=== PATIENT | male | born 1995 | race Caucasian/White ===

== ENCOUNTER 2017-04-11 17:37 | Emergency (ER) | payer OTHER ==
[2017-04-11 17:41] VITALS: BP 130/73; TEMP 98.2
--- NOTE | 2017-04-11 17:59 | EDPHY ---
H & P Stated Complaint: unprotected sex last night, noticed bruise on penis Time Seen by Provider: 04/11/17 17:50 HPI/ROS: CHIEF COMPLAINT: Bruising HISTORY OF PRESENT ILLNESS: The patient is a 21-year-old man who had unprotected sex last night and is here today complaining of some bruising and wants to get tested for STDs. The patient states that the sex was somewhat aggressive but not painful. He is currently not having any pain he does know some bruising and was concerned. No tenderness. No testicular pain. No abdominal pain. No pain with urination, no hematuria. No pain with ejaculation. REVIEW OF SYSTEMS: Constitutional: denies: chills, fever, recent illness, recent injury EENTM: denies: blurred vision, double vision, nose congestion Respiratory: denies: cough, shortness of breath Cardiac: denies: chest pain, irregular heart rate, lightheadedness, palpitations Gastrointestinal/Abdominal: denies: abdominal pain, diarrhea, nausea, vomiting, blood streaked stools see above Genitourinary: denies: dysuria, frequency, hematuria, pain Musculoskeletal: denies: joint pain, muscle pain Skin: denies: lesions, rash, jaundice, bruising Neurological: denies: headache, numbness, paresthesia, tingling, dizziness, weakness Hematologic/Lymphatic: denies: blood clots, easy bleeding, easy bruising Immunologic/allergic: denies: HIV/AIDS, transplant EXAM: GENERAL: Well-appearing, well-nourished and in no acute distress. HEAD: Atraumatic, normocephalic. EYES: Pupils equal round and reactive to light, extraocular movements intact, sclera anicteric, conjunctiva are normal. ENT: TMs normal, nares patent, oropharynx clear without exudates. Moist mucous membranes. NECK: Normal range of motion, supple without lymphadenopathy or JVD. LUNGS: Breath sounds clear to auscultation bilaterally and equal. No wheezes rales or rhonchi. HEART: Regular rate and rhythm without murmurs, rubs or gallops. ABDOMEN: Soft, nontender, normoactive bowel sounds. No guarding, no rebound. No masses appreciated. : Minor contusion to left aspect of penile shaft. No hematoma. No edema. No break in the skin. No testicular pain. Normal cremasteric. No discharge BACK: No CVA tenderness, no spinal tenderness, step-offs or deformities EXTREMITIES: Normal range of motion, no pitting or edema. No clubbing or cyanosis. NEUROLOGICAL: Cranial nerves II through XII grossly intact. Normal speech, normal gait. 5/5 strength, normal movement in all extremities, normal sensation PSYCH: Normal mood, normal affect. SKIN: Warm, dry, normal turgor, no visible rashes or lesions. Source: Patient Exam Limitations: No limitations - Personal History Current Tetanus/Diphtheria Vaccine: Yes Current Tetanus Diphtheria and Acellular Pertussis (TDAP): Yes Tetanus Vaccine Date: < 10 years - Medical/Surgical History Hx Asthma: No Hx Chronic Respiratory Disease: No Hx Diabetes: No Hx Cardiac Disease: No Hx Renal Disease: No Hx Cirrhosis: No Hx Alcoholism: No Hx HIV/AIDS: No Hx Splenectomy or Spleen Trauma: No Other PMH: PMHx: scoriasis. PSHx: denies - Family History Significant Family History: No pertinent family hx - Social History Smoking Status: Never smoked Alcohol Use: Sober Drug Use: None Constitutional: Initial Vital Signs Temperature (C) 36.8 C 04/11/17 17:39 Heart Rate 77 04/11/17 17:39 Respiratory Rate 18 04/11/17 17:39 Blood Pressure 130/73 H 04/11/17 17:39 O2 Sat (%) 97 04/11/17 17:39 O2 Delivery Mode Room Air Allergies/Adverse Reactions: Penicillins Allergy (Verified 04/11/17 17:38) Home Medications: Medication Instructions Recorded NO HOME MEDS 05/15/09 Medical Decision Making ED Course/Re-evaluation: We discussed the bruise. It is not concerning clinically. He does wish to be tested for STDs which we will do although he understands that is likely too early to have a positive test after exposure. I encouraged him to return if he develops any symptoms. He understands and agrees with this. Differential Diagnosis: Partial list of the Differential diagnosis considered include but were not limited to; contusion, STD and although unlikely based on the history and physical exam, I also considered testicular trauma, torsion, epididymitis, penile fracture. - Data Points Laboratory Results: 04/11/17 18:15 C.trachomatis RNA (TMA) Pending N.gonorrhoeae RNA (TMA) Pending Departure - Departure Disposition: Home, Routine, Self-Care Clinical Impression: Contusion of penis Condition: Fair Instructions: Contusion in Adults (ED) Referrals: NONE *PRIMARY CARE P,. [Primary Care Provider] - As per Instructions [facility] [[facility]] - As per Instructions
[2017-04-11 18:03] VITALS: PULSE 66; RESP 20; O2SAT 95
[2017-04-13 16:22] LABS: GC AMPLIFICATION GENPROBE NEGATIVE (NEGATIVE)
== END 2017-04-11 18:13 | disposition home or self-care (01) ==
DX: S30.21XA Contusion of penis, initial encounter (principal); X58.XXXA Exposure to other specified factors, initial encounter; Y93.89 Activity, other specified

== ENCOUNTER 2018-02-24 13:00 | Emergency (ER) | payer OTHER ==
[2018-02-24 13:10] VITALS: BP 133/74
[2018-02-24] MEDS ORDERED: DIAZEPAM 5 MG TAB PO ONE (13:42)
--- NOTE | 2018-02-24 13:46 | EDPHY ---
H & P Stated Complaint: woke up with stiff neck, R upper back, and R shoulder pain denies trauma Time Seen by Provider: 02/24/18 13:37 HPI/ROS: CHIEF COMPLAINT: Right thoracic back pain HISTORY OF PRESENT ILLNESS: The patient is a 22-year-old man who states that he developed pain to his right thoracic paraspinous muscles when he was lifting weights 2-3 weeks ago. He states that he was bench pressing and doing curls. He went to a chiropractor and had some manipulations and his symptoms improved however last night he states that he slept awkwardly and had significant pain when he woke today. His mom had to help him out of bed. No chest pain or shortness of breath. No abdominal pain. No urinary symptoms. No more recent trauma or injury. Severity: Moderate Modifying factors: None REVIEW OF SYSTEMS: Constitutional: denies: chills, fever, recent illness, recent injury EENTM: denies: blurred vision, double vision, nose congestion Respiratory: denies: cough, shortness of breath Cardiac: denies: chest pain, irregular heart rate, lightheadedness, palpitations Gastrointestinal/Abdominal: denies: abdominal pain, diarrhea, nausea, vomiting, blood streaked stools Genitourinary: denies: dysuria, frequency, hematuria, pain Musculoskeletal: See HPI Skin: denies: lesions, rash, jaundice, bruising Neurological: denies: headache, numbness, paresthesia, tingling, dizziness, weakness Hematologic/Lymphatic: denies: blood clots, easy bleeding, easy bruising Immunologic/allergic: denies: HIV/AIDS, transplant 10 systems reviewed and negative except as noted EXAM: GENERAL: Well-appearing, well-nourished and in no acute distress. HEAD: Atraumatic, normocephalic. EYES: Pupils equal round and reactive to light, extraocular movements intact, sclera anicteric, conjunctiva are normal. ENT: TMs normal, nares patent, oropharynx clear without exudates. Moist mucous membranes. NECK: Normal range of motion, supple without lymphadenopathy or JVD. LUNGS: Breath sounds clear to auscultation bilaterally and equal. No wheezes rales or rhonchi. HEART: Regular rate and rhythm without murmurs, rubs or gallops. ABDOMEN: Soft, nontender, normoactive bowel sounds. No guarding, no rebound. No masses appreciated. BACK: Patient has right-sided thoracic back pain paraspinous and below the scapula. EXTREMITIES: Normal range of motion, no pitting or edema. No clubbing or cyanosis. NEUROLOGICAL: Cranial nerves II through XII grossly intact. Normal speech, normal gait. 5/5 strength, normal movement in all extremities, normal sensation , normal reflexes PSYCH: Normal mood, normal affect. SKIN: Warm, dry, normal turgor, no visible rashes or lesions. Source: Patient Exam Limitations: No limitations - Personal History Tetanus Vaccine Date: < 10 years - Medical/Surgical History Hx Asthma: No Hx Chronic Respiratory Disease: No Hx Diabetes: No Hx Cardiac Disease: No Hx Renal Disease: No Hx Cirrhosis: No Hx Alcoholism: No Hx HIV/AIDS: No Hx Splenectomy or Spleen Trauma: No Other PMH: denies - Family History Significant Family History: No pertinent family hx - Social History Smoking Status: Never smoked Alcohol Use: Sober Drug Use: None Constitutional: Initial Vital Signs Temperature (C) 36.7 C 02/24/18 13:06 Heart Rate 64 02/24/18 13:06 Respiratory Rate 16 02/24/18 13:06 Blood Pressure 133/74 H 02/24/18 13:06 O2 Sat (%) 98 02/24/18 13:06 O2 Delivery Mode Room Air Allergies/Adverse Reactions: Penicillins Allergy (Verified 04/11/17 17:38) Home Medications: Medication Instructions Recorded NO HOME MEDS 05/15/09 Diazepam [Valium 5 MG (*)] 5 mg PO TID PRN #15 tab 02/24/18 Medical Decision Making ED Course/Re-evaluation: We had a long discussion about the utility of x-rays. I did offer to perform x- rays. The patient does not feel that this is likely a lung or cardiac problem. He does not have any weakness numbness or paresthesias which would indicate is spinous process injury. No fevers. No new trauma. No rib tenderness. In the end we agreed to try muscle relaxants and have him follow up with his chiropractor and I will also refer her to physical therapy. Patient understands and agrees with this plan. He declines further workup or testing. We discussed indications for returning. Differential Diagnosis: Partial list of the Differential diagnosis considered include but were not limited to; muscle strain, rib contusion and although unlikely based on the history and physical exam, I also considered pneumothorax, PE, acute coronary disease, spinal abnormality. I discussed these differential diagnoses and the plan with the patient as well as the usual and expected course. The patient understands that the diagnosis is provisional and that in medicine we are not always correct and that further workup is often warranted. Usual and customary warnings were given. All of the patient's questions were answered. The patient was instructed to return to the emergency department should the symptoms at all worsen or return, otherwise to followup with the physician as we discussed. - Data Points Medications Given: Discontinued Medications Diazepam (Valium) 5 mg PO EDNOW ONE Stop: 02/24/18 13:43 Last Admin: 02/24/18 13:52 Dose: 5 mg Departure - Departure Disposition: Home, Routine, Self-Care Clinical Impression: Muscle strain right paraspinous Condition: Fair Instructions: Muscle Strain (ED) Additional Instructions: Follow-up with physical therapy for treatment. Referrals: NONE *PRIMARY CARE P,. [Primary Care Provider] - As per Instructions Prescriptions: Diazepam [Valium 5 MG (*)] 5 mg PO TID PRN #15 tab PRN Reason: Spasms
== END 2018-02-24 14:00 | disposition home or self-care (01) ==
DX: S29.011A Strain of muscle and tendon of front wall of thorax, initial encounter (principal); X50.0XXA Overexertion from strenuous movement or load, initial encounter; Y93.B3 Activity, free weights

== ENCOUNTER 2018-02-26 19:09 | Emergency (ER) | payer OTHER ==
[2018-02-26 19:25] VITALS: BP 120/74
--- NOTE | 2018-02-26 19:46 | EDPHY ---
H & P Time Seen by Provider: 02/26/18 19:35 HPI/ROS: CHIEF COMPLAINT: Genital lesions HISTORY OF PRESENT ILLNESS: Patient is a 22-year-old male who admits to the frequent a productive intercourse here with concern for 1 day of nonpainful erythematous lesions to his penis. He has no history of STDs. There was no trauma to the penis. Denies any fever or penile discharge. He has no dysuria. ROS As detailed in HPI Smoking Status: Current every day smoker Physical Exam: General: Alert and oriented. Nontoxic appearing. No acute distress HEENT: Pupils PERRLA. No oral lesions. Cardiopulmonary: Regular rate and rhythm. No lower extremity edema Skin: [place] warm and dry. 5 nonblanching nonraised non petechial nonvesicular 1 -2 mm flesh-colored lesions to the shaft of the penis. No penile discharge Muscle skeletal: Moving all 4 extremities. Equal strength in upper extremities and lower extremities. Ambulatory. Constitutional: Initial Vital Signs Temperature (C) 36.2 C 02/26/18 19:20 Heart Rate 75 02/26/18 19:20 Respiratory Rate 18 02/26/18 19:20 Blood Pressure 120/74 02/26/18 19:20 O2 Sat (%) 99 02/26/18 19:20 O2 Delivery Mode Room Air Allergies/Adverse Reactions: Penicillins Allergy (Verified 04/11/17 17:38) Home Medications: Medication Instructions Recorded Diazepam [Valium 5 MG (*)] 5 mg PO TID PRN #15 tab 02/24/18 Medical Decision Making ED Course/Re-evaluation: I considered syphilis, HIV, herpes, mollescum, folliculitis. Patient was tested for syphilis and HIV and gonorrhea and chlamydia was sent. - Data Points Laboratory Results: 02/26/18 02/26/18 02/26/18 20:04 20:04 19:55 RPR Resp to Therapy Pending HIV 1&2 Antibody NEGATIVE (NEGATIVE) N.gonorrhoeae RNA (TMA) Cancelled Departure - Departure Disposition: Home, Routine, Self-Care Clinical Impression: Rash of genital area Condition: Good Instructions: Sexually Transmitted Diseases (ED) Additional Instructions: We will call with any positive results under testing. Referrals: NONE *PRIMARY CARE P,. [Primary Care Provider] - As per Instructions [facility],. [Clinic] - As per Instructions
[2018-02-26 22:44] LABS: HIV TYPE 1 AND 2 NEGATIVE (NEGATIVE)
== END 2018-02-26 20:11 | disposition home or self-care (01) ==
DX: N48.22 Cellulitis of corpus cavernosum and penis (principal); F17.200 Nicotine dependence, unspecified, uncomplicated

== ENCOUNTER 2018-03-01 18:26 | Emergency (ER) | payer OTHER ==
[2018-03-01 18:32] VITALS: BP 134/73
--- NOTE | 2018-03-01 19:20 | EDPHY ---
H & P Time Seen by Provider: 03/01/18 18:55 HPI/ROS: CHIEF COMPLAINT: Right thoracic back pain HISTORY OF PRESENT ILLNESS: Male complaining right thoracic paraspinous pain which occurred when he is lifting weights few days ago. He was seen the ER given prescription for Valium which states made him feel"100% better". However he completed this prescription and due to school commitments he is unable to see his primary care provider. He is in the ER requesting further medication, notes that his pain has returned. He denies acute symptomatology. She denies: Chest pain, dyspnea, abdominal pain, nausea, vomiting, headache. PRIMARY CARE PROVIDER: REVIEW OF SYSTEMS: 10 systems reviewed and negative with the exception of the elements mentioned in the history of present illness PAST MEDICAL & SURGICAL HISTORY: No pertinent medical or surgical history SOCIAL HISTORY: Student PHYSICAL EXAM (Prior to examination, patient consented to physical exam, hands were washed and my usual and customary physical exam procedures followed) 1) GENERAL: Well-developed, well-nourished, alert and oriented. Appears to be in no acute distress. 2) HEAD: Normocephalic, atraumatic 3) HEENT: Pupils equal, round, reactive to light bilaterally. Sclera anicteric. 4) NECK: Full range of motion, no meningeal signs. 5) LUNGS: Clear auscultation bilaterally, no wheezes, no rhonchi, no retractions. 6) HEART: Regular rate and rhythm, no murmur, no heave, no gallop. 7) ABDOMEN: No guarding, no rebound, no focal tenderness, negative McBurney's, negative Renae's, negative Rovsing's, negative peritoneal sign, 8) MUSCULOSKELETAL: Moving all extremities, no focal areas of tenderness, no obvious trauma. No peripheral edema or discoloration. 9) BACK: Tender to palpation right paraspinous thoracic region. No crepitus. No lesions. No vesicles. No CVA tenderness, no midline vertebral tenderness, no fluctuance, no step-off, no obvious trauma, no visual or palpable abnormality. 10) SKIN: No rash, no petechiae. 11) Psychiatric: Patient is oriented X 3, there is no agitation. DIFFERENTIAL DIAGNOSIS: In no particular order including but not limited to acute muscle strain, pneumothorax, fracture Smoking Status: Current every day smoker Constitutional: Initial Vital Signs Temperature (C) 36.8 C 03/01/18 18:26 Heart Rate 93 03/01/18 18:26 Respiratory Rate 19 18 18:26 Blood Pressure 134/73 H 18 18:26 O2 Sat (%) 96 18 18:26 O2 Delivery Mode Room Air Allergies/Adverse Reactions: No Known Allergies Allergy (Unverified 03/01/18 18:31) Home Medications: Medication Instructions Recorded Diazepam [Valium 5 MG (*)] 5 mg PO TID PRN #15 tab 02/24/18 Diazepam [Valium 5 MG (*)] 5 mg PO TID PRN #7 tab 03/01/18 MDM/Departure - [facility] ED Course/Re-evaluation: High clinical suspicion for muscular pathology. I Do not think that imaging indicated at this time. He has no midline pain, he has no dyspnea. Doubt pneumothorax. I have agreed to give him 7, Valium tablets however further medication will be due prescribed by his primary care provider. Usual and customary precautions instructions provided. Care of patient under supervision of secondary supervising physician Dr Villagran . - Depart Disposition: Home, Routine, Self-Care Clinical Impression: Sprain thoracic region Condition: Good Instructions: Muscle Spasm (ED) Additional Instructions: Return to the ER if you develop chest pain shortness of breath or any other symptoms that concern you. Prescriptions: Diazepam [Valium 5 MG (*)] 5 mg PO TID PRN #7 tab PRN Reason: Spasms Referrals: [facility] [Cl[facility]] - 2-3 days, call for appt.
== END 2018-03-01 19:26 | disposition home or self-care (01) ==
DX: S23.3XXA Sprain of ligaments of thoracic spine, initial encounter (principal); F17.200 Nicotine dependence, unspecified, uncomplicated; X50.0XXD Overexertion from strenuous movement or load, subsequent encounter; Y93.B3 Activity, free weights; Y92.9 Unspecified place or not applicable; Y99.9 Unspecified external cause status

== ENCOUNTER 2018-05-16 20:03 | Emergency (ER) | payer OTHER | END 2018-05-16 22:41 | disposition home or self-care (01) ==